=== PATIENT | female | born 1980 | race Hispanic/Latino ===

== ENCOUNTER → 2018-01-06 | Outpatient (CLI) | payer OTHER ==
[~2018-01-06] MED LIST: IOPAMIDOL 300 MG/ML 15ML VIAL IT ONE
--- NOTE | 2018-01-06 11:47 | Diagnostic Imaging Report ---
PROCEDURE:X-RAY HYSEROSALPINGOGRAM COMPARISON:None. INDICATIONS: Infertility. TECHNIQUE: Informed consent was obtained and the timeout performed. A sterile vaginal speculum was introduced, followed by cleansing of the cervix with Betadine. A five [place] HSG balloon-tipped catheter was inserted into the endometrial cavity without complication. 15 cc of Omnipaque 300 was injected and multiple images in the frontal and bilateral oblique projections were obtained. A relatively high volume of contrast and pressure was necessary for fallopian tubal opacification. Fluoroscopy time: 1.6 minutes. Cumulative air kerma: 32.98 mGy FINDINGS: Fallopian tubes: Patent bilaterally. Endometrial cavity: The endometrium is displaced to the right, with an irregular crescentic shape suggesting Effect upon the inferior margin of the uterine cavity and resulting loss of normal shape and contour. No definite adhesions. CONCLUSION: The fallopian tubes are patent bilaterally. There is an irregular uterine contour suggesting inferior mass effect. Consider MRI pelvis for further evaluation. Dictated by: Odilon Lamb M.D. on 01/06/2018 at 11:48 Electronically approved by: Odilon Lamb M.D. on 01/06/2018 at 11:48
== END | disposition home or self-care (01) ==
LOC: DX 08:40
PROVIDERS: ATTEND Obstetrics & Gynecology Reproductive Endocrinology
DX: Z31.41 Encounter for fertility testing (principal)
CPT/HCPCS: 58340; 74740; 81025; Q9967